=== PATIENT | female | born 1990 | race American Indian/Alaskan Native ===

== ENCOUNTER 2023-01-15 21:09 | Emergency (ER) | payer BC ==
[~2023-01-15] VITALS: Ht 172.7 cm; Wt 95.2 kg
[2023-01-15 21:24] VITALS: BP 129/80
== END 2023-01-15 23:16 | disposition home or self-care (01) ==
LOC: ER 21:09
DX: G43.909 Migraine, unspecified, not intractable, without status migrainosus (principal)
CPT/HCPCS: 96361; 96374; 96375; 99283-25; J1200; J1885; J2405; J2765; J7030